=== PATIENT | female | born 1980 | race Caucasian/White ===

== ENCOUNTER 2023-02-26 13:11 | Emergency (ER) | payer OTHER, SELFPAY ==
[2023-02-26 13:17] VITALS: BP 182/88; PULSE 138; RESP 24; TEMP 36.6; O2SAT 98; BMI 32.8
--- NOTE | 2023-02-26 13:29 | CT_ITS ---
The [address] [address] Patient Name: JUNE PLASCENCIA MRN: [id number] date: 1980 Sex: F Assigned Patient Location: ED.MAIN Current Patient Location: ER Accession/Order Number: [id number] Exam Date: 02/26/2023 14:15 Report Date: 02/26/2023 14:43 At the request of: DANIELLE CARLIN Procedure: CT abdomen pelvis w con EXAM: CT abdomen pelvis w con HISTORY: Right sided abdominal pain COMPARISON: None. TECHNIQUE: Following intravenous administration of 98 mm of Omnipaque 350, axial soft tissue windows of the abdomen and pelvis were performed with coronal and sagittal reformats. CT dose reduction technique was used including Automated Exposure Control. Findings: ABDOMEN: The liver, gallbladder, spleen, pancreas, and adrenal glands are unremarkable. No renal stones. Minimal bilateral collecting system and ureteral dilatation to the level the bladder. No obstructing ureteral stone. Evaluation of the bowel is limited given the absence of oral contrast. No bowel obstruction. The appendix is nondilated. The aorta is normal caliber. No enlarged abdominal lymph nodes or free abdominal fluid. Pelvis: Unremarkable bladder. The uterus is present and unremarkable within the limits of CT. There is a partially rim-enhancing irregularly-shaped low-attenuation lesion within the right adnexa measuring approximately 3.0 cm and likely relating to an involuting ovarian cyst. Trace amount of free pelvic fluid. No enlarged pelvic lymph nodes. No aggressive sclerotic or lytic osseous lesions. CT/CT abdomen pelvis w con IMPRESSION: 1. Probable involuting right ovarian cyst with a trace amount of free fluid within the pelvis. Electronically authenticated by: SANDRA RODRIGUEZ Date: 02/26/2023 14:43
--- NOTE | 2023-02-26 13:30 | ED.GENADUL1 ---
HPI - General Adult General Chief complaint: Abdominal Pain Stated complaint: BACK PAIN Time Seen by Provider: 02/26/23 13:18 History of Present Illness HPI narrative: patient is a 42-year-old female who presents to the emergency department for the evaluation of ongoing right-sided abdominal pain radiating into the back. This has been ongoing for the last 3-4 weeks. She was initially seen at the [place] emergency Department and diagnosed with a muscle strain. She states she followed up with her PCP who disagreed with this diagnosis and ordered labs and ultrasound of the right upper quadrant. This showed fatty liver and no other acute abnormalities. Patient continues to have intermittent pain in the right upper quadrant with some radiation to the right flank. She reports nausea, vomiting, intermittent diarrhea and bloating. She states that she was recommended to have a HIDA scan years ago but due to her anxiety does not feel she can tolerate the test. She has had no previous abdominal surgeries. She is unsure of a possibility of . No medications taken prior to arrival. She denies fevers or urinary symptoms. Related Data Home Medications Medication Instructions Recorded Confirmed atorvastatin 40 mg tablet 40 mg PO DAILY 02/26/23 02/26/23 baclofen 10 mg tablet 10 mg PO DAILY 02/26/23 02/26/23 cholecalciferol (vitamin D3) 50 50 mcg PO DAILY 02/26/23 02/26/23 mcg (2,000 unit) capsule ferrous sulfate 325 mg (65 mg 325 mg PO QMWF 02/26/23 02/26/23 iron) tablet (FeroSul) lisinopril 10 mg tablet 10 mg PO DAILY 02/26/23 02/26/23 Previous Rx's Medication Instructions Recorded hydrocodone 5 mg-acetaminophen 325 1 tab PO Q6H PRN pain #12 tabs 02/26/23 mg tablet hyoscyamine sulfate 0.125 mg 0.125 mg PO Q6H PRN abdominal pain 02/26/23 tablet (Levsin) #12 tabs ketorolac 10 mg tablet 10 mg PO TID PRN pain #10 tabs 02/26/23 ondansetron 4 mg disintegrating 4 mg PO Q6H PRN nausea and 02/26/23 tablet vomiting #12 tabs Allergies Allergy/AdvReac Type Severity Reaction Status Date / Time dulaglutide [From [facility]] Allergy Severe Verified 02/26/23 13:15 Review of Systems ROS Constitutional Denies: fever or chills Ears, nose, mouth, and throat Denies: throat pain Cardiovascular Denies: chest pain Respiratory Denies: shortness of breath or cough Gastrointestinal Reports: abdominal pain, nausea, vomiting, diarrhea and constipation Genitourinary Denies: painful urination Musculoskeletal Reports: back pain; Denies: neck pain Integumentary/Breast Denies: rash Neurological Denies: headache Psychiatric Reports: anxiety PFSH PFS Social History Smoking status: Light tobacco smoker Exam Narrative Exam Narrative: Gen.: Awake, alert, in no distress Head: Normocephalic, atraumatic ENT: Moist mucous membranes Respiratory: No respiratory distress, lungs clear bilaterally Cardio: tachycardia Gastrointestinal: Abdomen is soft, nondistended and mildly tender in the right upper quadrant with no guarding or rebound Extremities: Moves extremities equally Psych: Normal mood and affect Neuro: No focal neuro deficit Skin: Warm, dry, intact Constitutional Vital Signs, click to edit/add: Last Vital Signs Temp 97.9 F 02/26/23 13:17 Pulse 106 H 02/26/23 14:35 Resp 20 02/26/23 14:35 BP 132/89 02/26/23 14:35 Pulse Ox 97 02/26/23 14:35 O2 Del Method Room Air 02/26/23 13:17 Course Vital Signs Vital signs: Vital Signs Temperature 97.9 F 02/26/23 13:17 Pulse Rate 138 H 02/26/23 13:17 Respiratory Rate 24 02/26/23 13:17 Blood Pressure 182/88 H 02/26/23 13:17 Pulse Oximetry 98 02/26/23 13:17 Oxygen Delivery Method Room Air 02/26/23 13:17 Temperature 97.9 F 02/26/23 13:17 Pulse Rate 106 H 02/26/23 14:35 Respiratory Rate 20 02/26/23 14:35 Blood Pressure 132/89 02/26/23 14:35 Pulse Oximetry 97 02/26/23 14:35 Oxygen Delivery Method Room Air 02/26/23 13:17 Medical Decision Making MDM Narrative Medical decision making narrative: records obtained from [facility] showing the patient was seen in the emergency department on 02/04/23 with negative lab studies, negative d-dimer, negative chest x-ray. She had outpatient labs on 02/13/23 as well as right upper quadrant ultrasound, these studies were also unremarkable. patient was treated with IV fluids, she was tachycardic on arrival to the Emergency Room but also notably anxious and her heart rate improved significantly after calming down and receiving IV fluids. She received pain medication, nausea medication. Lab studies are unremarkable including LFTs and bilirubin. Urine specimen with no evidence of infection and test is negative. CT of the abdomen and pelvis with IV contrast shows a patient has a right ovarian cyst, but otherwise unremarkable liver, gallbladder and pancreas. Her clinical picture is more consistent with gall bladder disease/biliary colic to the patient was strongly encouraged to follow up with her PCP for additional testing. She was given a general surgery referral. She'll be treated with pain medication for right ovarian cyst and abdominal pain as well as Levsin, Zofran. Return to the Emergency Room if symptoms change or worsen. Abdomen is soft and benign on recheck by attending physician at discharge. Vital signs have improved significantly at time of discharge. Medical Records Medical records reviewed: Yes I reviewed the patient's medical records Lab Data Lab results reviewed: Yes I reviewed the patient's lab results Labs: Lab Results 02/26/23 02/26/23 Range/Units 13:40 14:00 WBC 12.1 H (4.0-11.0) 10^3/uL RBC 4.99 (4.20-5.40) 10^6/uL Hgb 14.3 (12.0-16.0) g/dL Hct 43.0 (36.0-48.0) % MCV 86.2 (81.0-99.0) fL MCH 28.7 (26.7-34.0) pg MCHC 33.3 (29.9-35.2) g/dL RDW 13.2 (11.0-15.0) % Plt Count 347 (150-450) 10^3/uL MPV 9.9 (9.5-13.5) fL Neut % (Auto) 75.5 H (43.0-75.0) % Lymph % (Auto) 18.1 L (20.5-60.0) % [place] % (Auto) 4.8 (1.7-12.0) % Eos % (Auto) 1.0 (0.9-7.0) % Baso % (Auto) 0.4 (0.2-2.0) % Neut # (Auto) 9.1 H (1.4-6.5) 10^3/uL Lymph # (Auto) 2.2 (1.2-3.8) 10^3/uL [place] # (Auto) 0.6 (0.3-0.8) 10^3/uL Eos # (Auto) 0.1 (0.0-0.7) 10^3/uL Baso # (Auto) 0.1 (0.0-0.1) 10^3/uL Abs Immat Gran (auto) 0.02 (0.00-0.03) 10^3/uL Imm/Tot Granulo (auto) 0.2 (0.0-0.5) % Sodium 135 L (136-145) mmol/L Potassium 3.7 (3.5-5.1) mmol/L Chloride 99 (98-107) mmol/L Carbon Dioxide 25.0 (21.0-32.0) mmol/L Anion Gap 14.7 BUN 13.0 (7.0-18.0) mg/dL Creatinine 0.95 (0.55-1.02) mg/dL Est GFR ( Amer) >60 (>=60) Est GFR (Non-Af Amer) >60 (>=60) BUN/Creatinine Ratio 13.7 Glucose 191 H (74-106) mg/dL Lactate 1.6 (0.4-2.0) mmol/L Calcium 9.4 (8.5-10.1) mg/dL Total Bilirubin 0.4 (0.2-1.0) mg/dL AST 21 (15-37) U/L ALT 21 (14-59) U/L Alkaline Phosphatase 79 (46-116) U/L Total Protein 7.8 (6.4-8.2) g/dL Albumin 4.4 (3.4-5.0) g/dL Globulin 3.4 g/dL Albumin/Globulin Ratio 1.3 Lipase 31.0 (16.0-77.0) U/L Serum HCG, Qual Negative (NEGATIVE) Urine Color Lt. yellow (YELLOW) Urine Clarity Clear (CLEAR) Urine pH 6.5 (5.0-9.0) Ur Specific [place] <=1.005 A (1.005-1.025) Urine Protein Negative (NEG/TRACE) mg/dL Urine Glucose (UA) Negative (NEGATIVE) mg/dL Urine Ketones Trace A (NEGATIVE) mg/dL Urine Occult Blood Small A (NEGATIVE) Urine Nitrite Negative (NEGATIVE) Urine Bilirubin Negative (NEGATIVE) Urine Urobilinogen 0.2 (0.2-1.0) EU/dL Ur Leukocyte Esterase Negative (NEGATIVE) Urine RBC 0-2 (0-2) #/HPF Urine WBC None seen (NONE SEEN) #/HPF Ur Squamous Epith Cells Few A (NONE/RARE) #/LPF Urine Crystals None seen (None Seen) #/HPF Urine Bacteria Trace A (NONE SEEN) #/HPF Urine Casts None seen (NONE SEEN) #/LPF Urine Mucus None seen (NONE SEEN) Ur Culture Indicated? No Imaging Data CT scan - abdomen: Attestation: I have reviewed the pertinent imaging results. Radiologist's impression: Procedure: CT abdomen pelvis w con EXAM: CT abdomen pelvis w con HISTORY: Right sided abdominal pain COMPARISON: None. TECHNIQUE: Following intravenous administration of 98 mm of Omnipaque 350, axial soft tissue windows of the abdomen and pelvis were performed with coronal and sagittal reformats. CT dose reduction technique was used including Automated Exposure Control. Findings: ABDOMEN: The liver, gallbladder, spleen, pancreas, and adrenal glands are unremarkable. No renal stones. Minimal bilateral collecting system and ureteral dilatation to the level the bladder. No obstructing ureteral stone. Evaluation of the bowel is limited given the absence of oral contrast. No bowel obstruction. The appendix is nondilated. The aorta is normal caliber. No enlarged abdominal lymph nodes or free abdominal fluid. Pelvis: Unremarkable bladder. The uterus is present and unremarkable within the limits of CT. There is a partially rim-enhancing irregularly-shaped low-attenuation lesion within the right adnexa measuring approximately 3.0 cm and likely relating to an involuting ovarian cyst. Trace amount of free pelvic fluid. No enlarged pelvic lymph nodes. No aggressive sclerotic or lytic osseous lesions. IMPRESSION: 1. Probable involuting right ovarian cyst with a trace amount of free fluid within the pelvis. Electronically authenticated by: SANDRA RODRIGUEZ Date: 02/26/2023 14:43 Discharge Plan Discharge Chief Complaint: Abdominal Pain Clinical Impression: Nausea & vomiting, Abdominal pain, Cyst of right ovary Patient Disposition: Home, Self-Care Time of Disposition Decision: 15:00 Condition: Good Prescriptions / Home Meds: New hydrocodone-acetaminophen 5-325 mg tablet 1 tab PO Q6H PRN (Reason: pain) Qty: 12 0RF Rx Instructions: DX: R10.84 hyoscyamine sulfate [Levsin] 0.125 mg tablet 0.125 mg PO Q6H PRN (Reason: abdominal pain) Qty: 12 0RF ondansetron 4 mg tablet,disintegrating 4 mg PO Q6H PRN (Reason: nausea and vomiting) Qty: 12 0RF ketorolac 10 mg tablet 10 mg PO TID PRN (Reason: pain) Qty: 10 0RF No Action atorvastatin 40 mg tablet 40 mg PO DAILY baclofen 10 mg tablet 10 mg PO DAILY cholecalciferol (vitamin D3) 50 mcg (2,000 unit) capsule 50 mcg PO DAILY ferrous sulfate [FeroSul] 325 mg (65 mg iron) tablet 325 mg PO QMWF lisinopril 10 mg tablet 10 mg PO DAILY Instructions: Ovarian Cyst (ED), HIDA Scan (DC), Acute Nausea and Vomiting (ED), Abdominal Pain (ED) Stand Alone Forms: Portal Instructions Referrals: Jorge Gould MD [Physician] - 1 week (Consider seeing a general surgeon to discuss a HIDA scan) Physician,Non-Staff, [Physician] - 1 week
[2023-02-26] MEDS: 0.9 % SODIUM CHLORIDE 1,000 ML 999 ML IV (13:47)
[2023-02-26] MEDS: HYOSCYAMINE SULFATE 0.125 MG TAB.SUBL SL (13:47)
[2023-02-26] MEDS: HYDROMORPHONE HCL 1 MG/ML CARTRIDGE IVP (13:48)
[2023-02-26] MEDS: ONDANSETRON PF 4 MG/2 ML VIAL IV (13:48)
[2023-02-26 13:53] LABS: Basophils Absolute Auto 0.1 10^3/uL (0.0-0.1); Basophils Percent Auto 0.4 % (0.2-2.0); Eosinophils Absolute Auto 0.1 10^3/uL (0.0-0.7); Hemoglobin 14.3 g/dL (12.0-16.0); Immature Granulocytes Abs Auto 0.02 10^3/uL (0.00-0.03); Immature Granulocytes Pct Auto 0.2 % (0.0-0.5); Lymphocytes Absolute Auto 2.2 10^3/uL (1.2-3.8); Lymphocytes Percent Auto 18.1 % (20.5-60.0); Mean Corpuscular HGB Conc 33.3 g/dL (29.9-35.2); Mean Corpuscular Hemoglobin 28.7 pg (26.7-34.0); Mean Corpuscular Volume 86.2 fL (81.0-99.0); Mean Platelet Volume 9.9 fL (9.5-13.5); Monocytes Absolute Auto 0.6 10^3/uL (0.3-0.8); Monocytes Percent Auto 4.8 % (1.7-12.0); Neutrophils Absolute Auto 9.1 10^3/uL (1.4-6.5); Neutrophils Percent Auto 75.5 % (43.0-75.0); Platelet Count 347 10^3/uL (150-450); Red Blood Count 4.99 10^6/uL (4.20-5.40); Red Cell Distribution Width 13.2 % (11.0-15.0); White Blood Count 12.1 10^3/uL (4.0-11.0)
[2023-02-26 14:09] LABS: Lactate/Lactic Acid 1.6 mmol/L (0.4-2.0)
[2023-02-26 14:12] LABS: HCG Qualitative NEGATIVE (NEGATIVE)
[2023-02-26 14:15] LABS: Alanine Aminotransferase 21 U/L (14-59); Albumin Globulin Ratio 1.3; Albumin Level 4.4 g/dL (3.4-5.0); Alkaline Phosphatase 79 U/L (46-116); Anion Gap 14.7; Aspartate Amino Transferase 21 U/L (15-37); BUN Creatinine Ratio 13.7; Bilirubin Total 0.4 mg/dL (0.2-1.0); Calcium 9.4 mg/dL (8.5-10.1); Chloride 99 mmol/L (98-107); Estimated GFR (African America >60 (>=60); Estimated GFR (Non-African Ame >60 (>=60); Globulin 3.4 g/dL; Glucose 191 mg/dL (74-106); Potassium 3.7 mmol/L (3.5-5.1); Sodium 135 mmol/L (136-145); Total Protein 7.8 g/dL (6.4-8.2)
[2023-02-26 14:19] LABS: Bilirubin Urine NEGATIVE (NEGATIVE); Blood Urine SMALL (NEGATIVE); Clarity Urine CLEAR (CLEAR); Color Urine LT. YELLOW (YELLOW); Glucose Urine UA NEGATIVE (NEGATIVE); Ketones Urine TRACE mg/dL (NEGATIVE); Leukocyte Esterase Urine NEGATIVE (NEGATIVE); Nitrite Urine NEGATIVE (NEGATIVE); Protein Urine NEGATIVE (NEG/TRACE); Specific Gravity Urine <=1.005 (1.005-1.025); Urobilinogen Urine 0.2 EU/dL (0.2-1.0); pH Urine 6.5 (5.0-9.0)
[2023-02-26 14:22] LABS: Urine Microscopic Indicated YES
[2023-02-26 14:25] LABS: Bacteria Urine TRACE #/HPF (NONE SEEN); Crystals Seen? None Seen #/HPF (None Seen); Mucus Urine NONE SEEN (NONE SEEN); RBC Urine 0-2 #/HPF (0-2); Squamous Epithelial Cell Urine FEW #/LPF (NONE/RARE); WBC Urine NONE SEEN #/HPF (NONE SEEN)
[2023-02-26 14:26] LABS: Cast Seen? NONE SEEN #/LPF (NONE SEEN); Urine Culture Indicated NO
[2023-02-26 14:35] VITALS: BP 132/89; PULSE 106; RESP 20; O2SAT 97
== END 2023-02-26 15:22 | disposition home or self-care (01) ==
PROVIDERS: Physician Assistant; Emergency Provider Emergency Medicine
DX: R10.9 Unspecified abdominal pain (principal); R11.2 Nausea with vomiting, unspecified; N83.201 Unspecified ovarian cyst, right side; Z79.899 Other long term (current) drug therapy; F41.9 Anxiety disorder, unspecified; F17.210 Nicotine dependence, cigarettes, uncomplicated
CPT/HCPCS: 36415; 74177; 80053; 81001; 83605; 83690; 84703; 85025; 96374; 96375; 99285; J1170; Q9967

== ENCOUNTER 2023-05-02 01:31 | Emergency (ER) | payer OTHER, SELFPAY ==
[2023-05-02 01:37] VITALS: BP 140/90; PULSE 102; RESP 18; TEMP 36.5; O2SAT 99; BMI 33.7
[2023-05-02 01:41] VITALS: PULSE 101
--- NOTE | 2023-05-02 01:46 | ED_ITS ---
HPI - General Adult General Chief complaint: Anxiety Stated complaint: RAPID HEART RATE Time Seen by Provider: 05/02/23 01:41 Source: patient Mode of arrival: walk-in Limitations: no limitations History of Present Illness HPI narrative: Patient developed cough/cold symptoms 04/25/23. She took an over the counter cough/cold med that contained pseudophed tonight and developed palpitations. She has anxiety and takes scheduled buspar but has nthing for breakthrough episodes. She admits to anxiety tonight. Related Data Home Medications Medication Instructions Recorded Confirmed atorvastatin 40 mg tablet 40 mg PO DAILY 02/26/23 05/02/23 baclofen 10 mg tablet 10 mg PO DAILY PRN muscle spasm 02/26/23 05/02/23 cholecalciferol (vitamin D3) 50 50 mcg PO DAILY 02/26/23 05/02/23 mcg (2,000 unit) capsule ferrous sulfate 325 mg (65 mg 325 mg PO QMWF 02/26/23 05/02/23 iron) tablet (FeroSul) lisinopril 10 mg tablet 10 mg PO DAILY 02/26/23 05/02/23 buspirone 5 mg tablet 5 mg PO DAILY 05/02/23 05/02/23 magnesium gluconate 27 mg 27 mg PO DAILY 05/02/23 05/02/23 magnesium (500 mg) tablet (Mag-G) omeprazole magnesium 20 mg 40 mg PO DAILY 05/02/23 05/02/23 tablet,delayed release (Prilosec OTC) Allergies Allergy/AdvReac Type Severity Reaction Status Date / Time dulaglutide [From [facility]] Allergy Severe Verified 05/02/23 01:46 lisinopril Allergy Verified 05/02/23 01:46 PFSH PFS Social History Smoking status: Former smoker Exam Narrative Exam Narrative: Nurses notes and vital signs reviewed and patient is not hypoxic. afebrile General: Well-appearing and in no apparent distress but anxious. Skin: Warm, dry, no pallor noted. No rash. Eye: Pupils are equal, round and EOMI. No scleral icterus. Ears, Nose, Mouth, and Throat: Oral mucosa is moist Cardiovascular: Regular Rate and Rhythm without murmur, gallop or rub. Respiratory: No accessory muscle use or respiratory distress. Lungs are clear to auscultation, no wheezing, rales or rhonchi Musculoskeletal: normal ROM Neurological: A&O x4. No cranial nerve dysfunction observed. No truncal ataxia. Moves all extremities. Sensation intact. Psychiatric: Cooperative and interactive. Normal mood and affect. Constitutional Vital Signs, click to edit/add: Last Vital Signs Temp 97.7 F 05/02/23 01:37 Pulse 88 05/02/23 02:47 Resp 14 05/02/23 02:47 BP 140/97 H 05/02/23 02:47 Pulse Ox 98 05/02/23 02:47 O2 Del Method Room Air 05/02/23 02:47 Course Vital Signs Vital signs: Vital Signs Temperature 97.7 F 05/02/23 01:37 Pulse Rate 102 H 05/02/23 01:37 Respiratory Rate 18 05/02/23 01:37 Blood Pressure 140/90 05/02/23 01:37 Pulse Oximetry 99 05/02/23 01:37 Oxygen Delivery Method Room Air 05/02/23 01:37 Temperature 97.7 F 05/02/23 01:37 Pulse Rate 88 05/02/23 02:47 Respiratory Rate 14 05/02/23 02:47 Blood Pressure 140/97 H 05/02/23 02:47 Pulse Oximetry 98 05/02/23 02:47 Oxygen Delivery Method Room Air 05/02/23 02:47 Medical Decision Making MDM Narrative Medical decision making narrative: Patient was placed on groundwater monitoring technician and EKG obtained. Blood drawn and sent for evaluation. BP 140/90. HR 102. she was given oral Ativan. Covid was negative. WBC 12.1 - the same as 2 months ago. BMP normal. Patient informed of results and given reassurance. She felt better after ED treatment and HR decreased to 82bpm. Lab Data Labs: Lab Results 05/02/23 05/02/23 Range/Units 01:55 02:19 WBC 12.1 H (4.0-11.0) 10^3/uL RBC 4.63 (4.20-5.40) 10^6/uL Hgb 13.1 (12.0-16.0) g/dL Hct 40.3 (36.0-48.0) % MCV 87.0 (81.0-99.0) fL MCH 28.3 (26.7-34.0) pg MCHC 32.5 (29.9-35.2) g/dL RDW 13.9 (11.0-15.0) % Plt Count 341 (150-450) 10^3/uL MPV 9.8 (9.5-13.5) fL Neut % (Auto) 73.7 (43.0-75.0) % Lymph % (Auto) 17.6 L (20.5-60.0) % [place] % (Auto) 5.1 (1.7-12.0) % Eos % (Auto) 2.7 (0.9-7.0) % Baso % (Auto) 0.6 (0.2-2.0) % Neut # (Auto) 8.9 H (1.4-6.5) 10^3/uL Lymph # (Auto) 2.1 (1.2-3.8) 10^3/uL [place] # (Auto) 0.6 (0.3-0.8) 10^3/uL Eos # (Auto) 0.3 (0.0-0.7) 10^3/uL Baso # (Auto) 0.1 (0.0-0.1) 10^3/uL Abs Immat Gran (auto) 0.04 H (0.00-0.03) 10^3/uL Imm/Tot Granulo (auto) 0.3 (0.0-0.5) % Sodium 137 (136-145) mmol/L Potassium 4.0 (3.5-5.1) mmol/L Chloride 103 (98-107) mmol/L Carbon Dioxide 24.2 (21.0-32.0) mmol/L Anion Gap 13.8 BUN 8.0 (7.0-18.0) mg/dL Creatinine 0.83 (0.55-1.02) mg/dL Est GFR ( Amer) >60 (>=60) Est GFR (Non-Af Amer) >60 (>=60) BUN/Creatinine Ratio 9.6 Glucose 146 H (74-106) mg/dL Calcium 8.9 (8.5-10.1) mg/dL SARS-CoV-2 (PCR) Negative (NEGATIVE) ECG Data Attestation: I personally reviewed and interpreted this ECG as follows: Interpretation: EKG interpretation: Emergency Department physician interpretation. Sinus tachycardia at 101bpm. Normal axis, normal intervals and no ST segment elevation or depression. Discharge Plan Discharge Chief Complaint: Anxiety Clinical Impression: Palpitations, Acute anxiety Patient Disposition: Home, Self-Care Time of Disposition Decision: 03:03 Prescriptions / Home Meds: No Action atorvastatin 40 mg tablet 40 mg PO DAILY baclofen 10 mg tablet 10 mg PO DAILY PRN (Reason: muscle spasm) cholecalciferol (vitamin D3) 50 mcg (2,000 unit) capsule 50 mcg PO DAILY ferrous sulfate [FeroSul] 325 mg (65 mg iron) tablet 325 mg PO QMWF lisinopril 10 mg tablet 10 mg PO DAILY magnesium gluconate [Mag-G] 27 mg magnesium (500 mg) tablet 27 mg PO DAILY omeprazole magnesium [Prilosec OTC] 20 mg tablet,delayed release (DR/EC) 40 mg PO DAILY buspirone 5 mg tablet 5 mg PO DAILY Instructions: Heart Palpitations (ED), Anxiety (ED) Stand Alone Forms: Portal Instructions Referrals: BRANDYN BASS [Primary Care Provider] - 1 week
--- NOTE | 2023-05-02 01:46 | ECG_ITS ---
The [facility] Test Date: 2023-05-02 Pat Name: JUNE PLASCENCIA Department: Room: - Gender: Female [employer]: : 1980 Requested By: Bucky Small Order Number: [id number] Reading MD: CHRIS JACKSON Measurements Intervals [place] Rate: 101 P: 30 CA: 142 QRS: 82 QRSD: 80 T: 45 QT: 352 QTc: 410 Interpretive Statements 1120 Sinus tachycardia 9140 abnormal rhythm ECG No previous ECG available for comparison Electronically Signed On 05-02-2023 7:23:30 EST by CHRIS JACKSON
[2023-05-02 02:08] LABS: SARS-CoV-2 Ag NEGATIVE (NEGATIVE)
[2023-05-02] MEDS: ONDANSETRON 4 MG RAPDIS TABLET SL (02:09)
[2023-05-02] MEDS: LORAZEPAM 0.5 MG TABLET PO (02:09)
[2023-05-02 02:31] LABS: Basophils Absolute Auto 0.1 10^3/uL (0.0-0.1); Basophils Percent Auto 0.6 % (0.2-2.0); Eosinophils Absolute Auto 0.3 10^3/uL (0.0-0.7); Eosinophils Percent Auto 2.7 % (0.9-7.0); Hematocrit 40.3 % (36.0-48.0); Hemoglobin 13.1 g/dL (12.0-16.0); Immature Granulocytes Abs Auto 0.04 10^3/uL (0.00-0.03); Immature Granulocytes Pct Auto 0.3 % (0.0-0.5); Lymphocytes Absolute Auto 2.1 10^3/uL (1.2-3.8); Lymphocytes Percent Auto 17.6 % (20.5-60.0); Mean Corpuscular HGB Conc 32.5 g/dL (29.9-35.2); Mean Corpuscular Hemoglobin 28.3 pg (26.7-34.0); Mean Platelet Volume 9.8 fL (9.5-13.5); Monocytes Absolute Auto 0.6 10^3/uL (0.3-0.8); Monocytes Percent Auto 5.1 % (1.7-12.0); Neutrophils Absolute Auto 8.9 10^3/uL (1.4-6.5); Neutrophils Percent Auto 73.7 % (43.0-75.0); Platelet Count 341 10^3/uL (150-450); Red Blood Count 4.63 10^6/uL (4.20-5.40); Red Cell Distribution Width 13.9 % (11.0-15.0); White Blood Count 12.1 10^3/uL (4.0-11.0)
[2023-05-02 02:36] LABS: Anion Gap 13.8; BUN Creatinine Ratio 9.6; Calcium 8.9 mg/dL (8.5-10.1); Carbon Dioxide 24.2 mmol/L (21.0-32.0); Chloride 103 mmol/L (98-107); Estimated GFR (African America >60 (>=60); Estimated GFR (Non-African Ame >60 (>=60); Glucose 146 mg/dL (74-106); Sodium 137 mmol/L (136-145)
[2023-05-02 02:47] VITALS: BP 140/97; PULSE 88; RESP 14; O2SAT 98
[2023-05-02 11:23] LABS: SARS-CoV-2 NAA NOT DETECTED (NOT DETECTE)
== END 2023-05-02 03:20 | disposition home or self-care (01) ==
PROVIDERS: Emergency Provider Emergency Medicine
DX: R00.2 Palpitations (principal); F41.9 Anxiety disorder, unspecified; Z87.891 Personal history of nicotine dependence
CPT/HCPCS: 36415; 80048; 85025; 87635; 87811; 93005; 99284

== ENCOUNTER 2023-05-21 21:27 | Emergency (ER) | payer OTHER, SELFPAY ==
[2023-05-21 21:30] VITALS: BP 162/103; PULSE 111; RESP 20; TEMP 36.6; O2SAT 99; BMI 33.7
--- OUTSIDE RECORDS SUMMARY | 2023-05-21 21:37 | XMS_ITS | CCD ---
Author Name Unknown Address [address] [place] [address] Organization [facility] Care Team Providers Care Textile Conversion Manager Name Role Phone GREGOR TRUJILLO Referring Unavailable GARY, NADIA Primary Care Unavailable GREGOR TRUJILLO Referring Unavailable GARY, NADIA Primary Care Unavailable GREGOR TRUJILLO Admitting Unavailable CONSGREGOR HAM Attending Unavailable GARY, NADIA Primary Care Unavailable TIMMIS, DR CEBALLOS Consulting Unavailable [facility] Primary Care Unava ilable TIMABBEYS, DR CEBALLOS Attending Unavailable TIMMIS, DR CEBALLOS Admitting Unavailable Lilia Wilkinson Consulting Unavailable Clemente Berrios Unavailable Paige Diamond Primary Care Unavailable AplingKiki Admitting Unavailable AplingKiki Attending Unavailable AngDiamond anderson Attending Unavailable Anglim, Diamond Admitting Unavailable Anglim, Diamond Primary Care Unavailable Allergies Allergy Classification Reported Allergen(s) Allergy Type Date of Onset Reaction(s) Facility (1 source) dulaglutide Drug Allergy stomach upset [facility] Other Medications Current Medications Medication Drug Class(es) Dates Sig (Normalized) Sig (Original) atorvastatin 40 mg oral tablet (1 source) HMG-CoA Reductase Inhibitor take 1 tablet by mouth every twenty-four hours Atorvastatin Calcium 40 MG 1 tablet Orally Once a day Active Baclofen (1 source) gamma-Aminobutyric Acid-ergic Agonist Baclofen Active busPIRone hydrochloride 5 mg oral tablet (1 source) take 1 tablet by mouth every twelve hours busPIRone HCl 5 MG 1 tablet Orally Twice a day Active Calcium Magnesium Zinc (1 source) Calcium Magnesiu m Zinc Active cholecalciferol 0.05 mg oral capsule (1 source) Vitamin D take 1 capsule by mouth every twenty-four hours Vitamin D3 50 MCG (1999) 1 capsule Orally Once a day Active ferrous sulfate 325 mg oral tablet (1 source) take 1 tablet by mouth every other day FeroSul 325 (65 Fe) MG 1 tablet Orally every other day Active lisinopril 10 mg oral tablet (1 source) Angiotensin Converting Enzyme Inhibitor take 1 tablet by mouth every twenty-four hours Lisinopril 10 MG 1 tablet Orally Once a day Active loratadine 10 mg oral tablet (1 source) take 1 tablet by mouth once daily Loratadine 10 MG 1 tablet Orally Once a day Active Multivitamin preparation (1 source) take 1 tablet by mouth once daily Multivitamin - 1 tablet Orally Once a day Active omeprazole 40 mg delayed release oral capsule (1 source) Proton Pump Inhibitor take 1 capsule by mouth once daily Omeprazole 40 MG 1 capsule 30 minutes before morning meal Orally Once a day Active varenicline (1 source) Partial Cholinergic Nicotinic Agonist Varenicline Tartrate Active Problems Problem Classification Problem Date Documented Date Episodic/Chronic Administrative/socia l admission (2 sources) Dietary counseling and surveillance; Translations: [Other specified counseling] Episodic Diabetes mellitus without complication (2 sources) Type 2 diabetes mellitus; Translations: [Type 2 diabetes mellitus without complications] Chronic Disorders of lipid metabolism (2 sources) Dyslipidemia; Translations: [Hyperlipidemia, unspecified] Chronic Esophageal disorders (2 sources) Gastroesophageal reflux disease; Translations: [Gastro-esophageal reflux disease without esophagitis] Chronic Essential hypertension (2 sources) Essential hypertension; Translations: [Essential (primary) hypertension] Chronic Other ear and sense organ disorders (4 sources) Sensorineural hearing loss, unilateral, left ear, with unrestricted hearing on the contralateral side; Translations: [SHL UNI LT UNRESTRCT HEAR CONTRALAT] Onset: 01-16-2021 Chronic Other nutritional; endocrine; and metabolic disorders (1 source) Obesity; Translations: [Obesity, unspecified] Chronic Other nutritional; endocrine; and metabolic disorders (1 source) Obesity, unspecified Chronic Unclassified (2 sources) RIGHT ACHILLES SPUR; Translations: [RIGHT ACHILLES SPUR] Onset: 09-04-2018 Unclassified (1 source) Dietary counseling and surveillance; Translations: [Dietary counseling and surveillance] Onset: 01-20-2023 Unclassified (1 source) Unspecified internal derangement of left knee; Translations: [Unspecified internal derangement of left knee] Onset: 10-14-2022 Results Test Name Value Interpretation Reference Range Facil ity XR pre/post mri xrayon 10-14 XR pre/post mri xray [facility] Main [place] [address] [place] [address] MRI Report Signed Patient: Liz Gonzalez MR#: [id number] : 1980 Acct:[id number] Age/Sex: 42 / F ADM Date: 10/14/22 Loc: MR Room: Type: [facility] Attending Dr: Kiki Garay NP Copies to: Kiki Garay NP Ordering Provider: Kiki Garay NP Date of Service: 10/14/22 MR/MR knee LT wo con: M23.92 ([id number]) XR/XR pre/post mri xray: M2 MRI of the RIGHT Knee without contrast TECHNIQUE: Multiplanar T1 and T2-weighted imaging of the knee obtained without contrast HISTORY: Known Morales's cyst of left knee. BONE MARROW: No infiltrative changes. BONE MARROW EDEMA: None FRACTURE: None BONE TUMOR: None BONY ALIGNMENT: Adequate DEGENERATION: No significant spurring or joint space narrowing. JOINT EFFUSION: No joint effusion MUSCLES: Unremarkable SOFT TISSUES: Unremarkable POPLITEAL CYST: Large popliteal cyst measures up to 5.3 cm. No rupture. ANTERIOR CRUCIATE LIGAMENT: Intact POSTERIOR CRUCIATE LIGAMENT: Intact LATERAL COMPARTMENT: LATERAL MENISCUS: Subtle increased intrasubstance signal intensity posterior horn of the medial meniscus suggesting intrasubstance tear versus mucoid degeneration.. LATERAL ARTICULAR CARTILAGE: Intact. No osteochondral defect. No subcuticular bone marrow edema. PROXIMAL TIBIOFIBULAR JOINT: Intact POSTERIOR LATERAL COMPARTMENT: Intact lateral collateral ligament complex. Intact biceps femoris tendon. Intact popliteus tendon. COMMON PERONEAL NERVE: Intact MEDIAL COMPARTMENT: MEDIAL MENISCUS: Increased CAD T1/T2 signal changes of the posterior horn of the medial meniscus suggesting intrasubstance tear versus mucoid degeneration. MEDIAL ARTICULAR SURFACE: No chondromalacia. No subarticular bone marrow edema. POSTERIOR MEDIAL COMPARTMENT: Medial collateral ligament complex intact. The semimembranosus tendon intact. No ramp lesion of the posterior horn of medial meniscus present. PATELLOFEMORAL COMPARTMENT: PATELLOFEMORAL ARTICULAR CARTILAGE: Chondromalacia of the patella identified. ANTERIOR LIGAMENTS: Patellar ligament and quadriceps tendon are intact. MR/MR knee LT wo con IMPRESSION: Findings suggesting mucoid degeneration/intrasub stance tear of posterior horn of the medial meniscus and posterior horn of lateral meniscus. Intact ACL. No joint effusion. Patellofemoral chondromalacia Popliteal cyst. 2 views of left knee. No joint effusion. Intact Bony structures. Adequate bony alignment. No significant degeneration. IMPRESSION: Unremarkable exam Impression dictated by: Mick Colindres M.D.10/14/2022 3:08 PM Dictation Location: [place] [address] Transcribed By: [facility] 10/14/22 1508 Dictated By: Mick Colindres DO 10/14/22 1502 Signed By: 10/14/22 1508 Normal [facility] MRI BRAIN WO CONon 1 MRI BRAIN WO CON EXAM: MRI BRAIN WO CON HISTORY: Sensorineural hearing loss COMPARISON: None. TECHNIQUE: Limited exam due to patient claustrophobia and inability to complete the procedure. Images obtained included axial diffusion and sagittal T1 images only. FINDINGS: There is no infarct, hemorrhage, mass, mass effect or midline shift evident. The ventricles are normal size. Small cyst left maxillary sinus floor, otherwise no significant sinus opacification is seen. The orbits appear grossly unremarkable. Internal auditory canals are not adequately evaluated. IMPRESSION: No acute intracranial process is evident. Internal auditory canals not evaluated due to patient claustrophobia and inability to complete exam. Electronically authenticated by: LILIA WILKINSON Date: 2021-01-16 19:04 Normal [facility] OPERATIVE REPORTon 9 OPERATIVE REPORT [address] [address] OPERATIVE REPORT PATIENT NAME: LIZ GONZALEZ : 1980 MED REC NO: [id number] ROOM: ACCOUNT NO: [id number] ADMIT DATE: 09/04/2018 PROVIDER: Gregor Trujillo DATE OF PROCEDURE: 09/04/2018 SURGEON: Dr. Gregor Trujillo. DIPPER MACHINE OPERATOR: . PREOPERATIVE DIAGNOSES: 1. Right foot chronic Achilles tendonosis. 2. Right foot retrocalcaneal spur. POSTOPERATIVE DIAGNOSES: 1. Right foot chronic Achilles tendonosis. 2. Right foot retrocalcaneal spur. PROCEDURE PERFORMED: Right foot resection of retrocalcaneal spur with debridement and repair of the Achilles tendon. ANESTHESIA: Popliteal block, right. ANESTHESIOLOGIST: Ana. HEMOSTASIS: Thigh tourniquet, 300 mmHg. OBJECTIVE: The patient was prophylaxed with 2 gm of Ancef preoperatively. The patient was taken to the operating room and placed in the prone position. Popliteal block had been placed prior to this. The right foot, ankle, and leg were prepped sterilely with Betadine. Attention now directed to right foot posterior aspect where a 5 cm linear incision was made proximal Achilles moving distally over the calcaneus. Incision was deepened through the subcutaneous tissues. Care was taken to cut, clamp, and Bovie all the incisional blood vessels. Dissection was carried around the tendon and noted very prominent spur formation at the posterior attachments of the Achilles. The tendon splitting incision was then made in the midsubstance of the Achilles. Lateral medial segments were reflected away from the bone. Noted quite prominent spur formation along with some involvement of the Achilles with areas of bone spur formation. Using a combination of osteotomes and egg burs, the spur was resected. Debridement of the Achilles also performed. The area was then copiously lavaged with gentamicin flush. The tendon was then reapproximated with Arthrex suture anchor. Remainder of the tendon was then repaired with 0 Vicryl. The subcu was closed with 2-0 Vicryl. The skin then closed with a combination of 3-0 and 4-0 Nylon in a horizontal mattress fashion. Ly compressive dressing splint, splint was then applied. The patient tolerated the anesthesia and procedure well without complications and was transported to recovery room with vital signs stable, afebrile, and in apparent satisfactory condition. Sponge, needle, and instrument counts were all correct. GREGOR TRUJILLO NANI/[id number] Doc#: [id number] CC: Normal [facility] HCG, ,Urineon 09-04 HCG.beta subunit ( test) Ql (U) Negative Normal NEG [facility] Comment on above: Result Comment: Spec imens with hCG levels near the threshold of the test (25 mIU/mL) may give a negative or indeterminate result. In such cases, another test should be performed with a new specimen in 48-72 hours. If early is suspected clinically in this setting, correlation with quantitative serum b-hCG level is suggested. [facility] has confirmed the use of plasma for this test. This has not been cleared or approved by the U.S. Food and Drug Administration. The FDA has determined that such clearance is not necessary. Performed By: #### U HCG #### [facility] [address] [place] [address] [employer]: Yan Cho MD Basic Metabolic Profon 08-26 (cont.) Normal [facility] Comment on above: Result Comment: Aver age GFR for 30-39 years old: 107 mL/min/1.73sq m Chronic Kidney Disease: <60 mL/min/1.73sq m Kidney failure: <15 mL/min/1.73sq m eGFR calculated using average adult body mass. Additional eGFR calculator available at: http://www.[employer]/multiple_crcl_2012.htm Performed By: #### B MP, CBC #### [facility] [address] [place] [address] [employer]: Yan Cho MD Anion gap molar conc 12 mmol/L Normal 9-17 [facility] Comment on above: Performed By: #### B MP, CBC #### [facility] [address] [place] [address] [employer]: Yan Cho MD BUN/CRE Ratio 13 Normal 9-20 [facility] Comment on above: Performed By: #### B MP, CBC #### [facility] [address] [place] [address] [employer]: Yan Cho MD Calcium mass conc 10.2 mg/dL Normal 8.6-10.4 [facility] Comment on above: Performed By: #### B MP, CBC #### [facility] [address] [place] [address] [employer]: Yan Cho MD Chloride molar conc 100 mmol/L Normal 98-107 [facility] Comment on above: Performed By: #### B MP, CBC #### [facility] [address] [place], [place] [id number] [employer]: Yan Cho MD CO2 molar conc 26 mmol/L Normal 20-31 [facility] Comment on above: Performed By: #### B MP, CBC #### [facility] [address] [place], [place] [id number] [employer]: Yan Cho MD Creatinine mass conc 0.89 mg/dL Normal 0.50-0.90 [facility] Comment on above: Performed By: #### B MP, CBC #### [facility] [address] [place], [place] [id number] [employer]: Yan Cho MD GFR, Amer >60 Normal >60 [facility] Comment on above: Performed By: #### B MP, CBC #### [facility] [address] [place], [place] [id number] [employer]: Yan Cho MD GFR,non Amer >60 Normal >60 [facility] Comment on above: Performed By: #### B MP, CBC #### [facility] [address] [place], [place] [id number] [employer]: Yan Cho MD Glucose mass conc 137 mg/dL High 70-99 [facility] Comment on above: Performed By: #### B MP, CBC #### [facility] [address] [place], [place] [id number] [employer]: Yan Cho MD Potassium molar conc 4.9 mmol/L Normal 3.7-5.3 [facility] Comment on above: Performed By: #### B MP, CBC #### [facility] [address] [place], [place] [id number] [employer]: Yan Cho MD Sodium molar conc 138 mmol/L Normal 135-144 [facility] Comment on above: Performed By: #### B MP, CBC #### [facility] [address] [place] [address] [employer]: Yan Cho MD Staging: Normal [facility] Comment on above: Result Comment: Stag e 1: Some kidney damage normal GFR Stage 2: Mild kidney damage GFR 60-89 Stage 3: Moderate kidney damage GFR 30-59 Stage 4: Severe kidney damage GFR 15-29 Stage 5: Severe kidney damage GFR <15 ESRD - chronic treatment by dialysis or transplant Performed By: #### B MP, CBC #### [facility] [address] [place], [place] [id number] [employer]: Yan Cho MD Urea nitrogen mass conc 12 mg/dL Normal 6-20 [facility] Comment on above: Performed By: #### B MP, CBC #### [address] [place] [address] [employer]: Yan Cho MD CBCon 08-26-2018 Erythrocyte distribution width Ratio (RBC) 13.3 % Normal 11.8-14.4 [facility] Comment on above: Performed By: #### B MP, CBC #### [address] [place], [place] [id number] [employer]: Yan Cho MD Hematocrit Volume Fraction (Bld) 46.3 % Normal 36.3-47.1 [facility] Comment on above: Performed By: #### B MP, CBC #### [facility] [address] [place] [address] [place], [place] [id number] [employer]: Yan Cho MD Hemoglobin mass conc (Bld) 14.5 g/dL Normal 11.9-15.1 [facility] Comment on above: Performed By: #### B MP, CBC #### [address] [place] [address] [employer]: Yan Cho MD MCH Entitic mass (RBC) 28.3 pg Normal 25.2-33.5 [facility] Comment on above: Performed By: #### B MP, CBC #### [facility] [address] [place], [place] [id number] [employer]: Yan Cho MD [facility] mass conc (RBC) 31.3 g/dL Normal 28.4-34.8 [facility] Comment on above: Performed By: #### B MP, CBC #### [facility] [address] [place], [place] [id number] [employer]: Yan Cho MD MCV Entitic volume (RBC) 90.3 fL Normal 82.6-102.9 [facility] Comment on above: Performed By: #### B MP, CBC #### [facility] [address] [place], [place] [id number] [employer]: Yan Cho MD NRBC Automated 0.0 per 100 WBC Normal 0.0 [facility] Comment on above: Performed By: #### B MP, CBC #### [facility] [address] [place], [place] [id number] [employer]: Yan Cho MD Platelet mean volume Entitic volume (Bld) 10.4 fL Normal 8.1-13.5 [facility] Comment on above: Performed By: #### B MP, CBC #### [address] [place], [place] [id number] [employer]: Yan Cho MD Platelets #/vol (Bld) 325 10*3/uL Normal 138-453 [facility] Comment on above: Performed By: #### B MP, CBC #### [facility] [address] [place], [place] [id number] [employer]: Yan Cho MD RBC #/vol (Bld) 5.13 10*6/uL High 3.95-5.11 [facility] Comment on above: Performed By: #### B MP, CBC #### [address] [place], [place] [id number] [employer]: Yan Cho MD WBC #/vol (Bld) 12.6 10*3/uL High 3.5-11.3 [facility] Comment on above: Performed By: #### Alexis BARTLETT, CBC #### [facility] [address] [place] [address] [place], [place] [id number] [employer]: Yan Cho MD Basic Metabolic Profon 04-30 (cont.) Normal [facility] Comment on above: Result Comment: Aver age GFR for 30-39 years old: 107 mL/min/1.73sq m Chronic Kidney Disease: <60 mL/min/1.73sq m Kidney failure: <15 mL/min/1.73sq m eGFR calculated using average adult body mass. Additional eGFR calculator available at: http://www.[employer]/multiple_crcl_2012.htm Performed By: #### B DHRUV, CBC #### [address] [place] [address] Anion gap molar conc 12 mmol/L Normal 9-17 [facility] Comment on above: Performed By: #### Alexis BARTLETT, CBC #### [address] [place] [address] BUN/CRE Ratio 9 Normal 9-20 [facility] Comment on above: Performed By: #### B DHRUV, CBC #### [address] [place] [address] Calcium mass conc 9.6 mg/dL Normal 8.6-10.4 [facility] Comment on above: Performed By: #### B DHRUV, CBC #### [address] [place] [address] Chloride molar conc 101 mmol/L Normal 98-107 [facility] Comment on above: Performed By: #### B DHRUV, CBC #### [address] [place] [address] CO2 molar conc 24 mmol/L Normal 20-31 [facility] Comment on above: Performed By: #### B MP, CBC #### [address] [address] Creatinine mass conc 0.77 mg/dL Normal 0.50-0.90 [facility] Comment on above: Performed By: #### B MP, CBC #### [address] [place] [address] GFR, Amer >60 Normal >60 [facility] Comment on above: Performed By: #### B MP, CBC #### [address] [place] [address] GFR,non Amer >60 Normal >60 [facility] Comment on above: Performed By: #### B MP, CBC #### [address] [place] [address] Glucose mass conc 92 mg/dL Normal 70-99 [facility] Comment on above: Performed By: #### B MP, CBC #### [address] [place] [address] Potassium molar conc 4.2 mmol/L Normal 3.7-5.3 [facility] Comment on above: Performed By: #### B MP, CBC #### [address] [place] [address] Sodium molar conc 137 mmol/L Normal 135-144 [facility] Comment on above: Performed By: #### B MP, CBC #### [address] [place] [address] Staging: Normal [facility] Comment on above: Result Comment: Stag e 1: Some kidney damage normal GFR Stage 2: Mild kidney damage GFR 60-89 Stage 3: Moderate kidney damage GFR 30-59 Stage 4: Severe kidney damage GFR 15-29 Stage 5: Severe kidney damage GFR <15 ESRD - chronic treatment by dialysis or transplant Performed By: #### B MP, CBC #### [address] [place] [address] Urea nitrogen mass conc 7 mg/dL Normal 6-20 [facility] Comment on above: Performed By: #### B MP, CBC #### [address] [place] [address] CBCon 04-30-2018 Erythrocyte distribution width Ratio (RBC) 13.6 % Normal 11.8-14.4 [facility] Comment on above: Performed By: #### B MP, CBC #### [address] [place] [address] Hematocrit Volume Fraction (Bld) 46.0 % Normal 36.3-47.1 [facility] Comment on above: Performed By: #### B MP, CBC #### [address] [place] [address] Hemoglobin mass conc (Bld) 15.0 g/dL Normal 11.9-15.1 [facility] Comment on above: Performed By: #### B MP, CBC #### [address] [place] [address] MCH Entitic mass (RBC) 29.5 pg Normal 25.2-33.5 [facility] Comment on above: Performed By: #### B MP, CBC #### [address] [place] [address] MCHC mass conc (RBC) 32.6 g/dL Normal 28.4-34.8 [facility] Comment on above: Performed By: #### B MP, CBC #### [address] [address] MCV Entitic volume (RBC) 90.4 fL Normal 82.6-102.9 [facility] Comment on above: Performed By: #### B MP, CBC #### [address] [place] [address] NRBC Automated 0.0 per 100 WBC Normal 0.0 [facility] Comment on above: Performed By: #### B MP, CBC #### [address] [place] [address] Platelet mean volume Entitic volume (Bld) 10.6 fL Normal 8.1-13.5 [facility] Comment on above: Performed By: #### B MP, CBC #### [address] [place] [address] Platelets #/vol (Bld) 389 10*3/uL Normal 138-453 [facility] Comment on above: Performed By: #### B MP, CBC #### [address] [place] [address] RBC #/vol (Bld) 5.09 10*6/uL Normal 3.95-5.11 [facility] Comment on above: Performed By: #### B MP, CBC #### [address] [place] [address] WBC #/vol (Bld) 16.7 10*3/uL High 3.5-11.3 [facility] Comment on above: Performed By: #### B MP, CBC #### [address] [place] [address] Vital Signs Date Time Vital Sign Value Performing Clinician Facility 01-20-2023 08:45-0400 Body height 161.29 cm [email or web address] [email or web address] Other [facility] Other 01-20-2023 08:45-0400 Body mass index (BMI) [Ratio] 33.28 kg/m2 [employer] Other [facility] Other 01-20-2023 08:45-0400 Body weight 86.59 kg [employer] Other [facility] Other 01-20-2023 08:45-0400 Diastolic blood pressure 92 mm[Hg] Clemente Berrios Other [facility] Other 01-20-2023 08:45-0400 Respiratory rate 18 /min Clemente Berrios Other [facility] Other 01-20-2023 08:45-0400 SaO2% (BldA) [Mass fraction] 99 % Clemente Berrios Other [facility] Other 01-20-2023 08:45-0400 Systolic blood pressure 142 mm[Hg] Clemente Berrios Other [facility] Other Encounters Encounter Date Encounter Type Care Provider Facility Start: 01-20-2023 End: 01-20-2023 ambulatory Diamond [facility] Other Start: 01-20-2023 Nutrition therapy Clemente Berrios [facility] Start: 10-14-2022 End: 10-14-2022 ambulatory Diamond Gibson Facility:[facility] Start: 01-16-2021 End: 01-17-[address] TUCKER PERDUE Facility: Start: 09-04-2018 End: 09-04-2018 Patient encounter procedure GREGOR Gabriella [facility] Start: 08-26-2018 End: 08-31-2018 [facility]: 04-30-2018 End: 05-05-2018 Patient encounter procedure [facility] Procedures Date Procedure Procedure Detail Performing Clinician Start: 09-04-2018 DISCHARGE PATIENT GREGOR TRUJILLO Start: 09-04-2018 BEDREST GREGOR BRADY Start: 09-04-2018 Continuous pulse oximetry GREGOR TRUJILLO Start: 09-04-2018 ENCOURAGE DEEP BREAT DARVIN AND COUGHING GREGOR TRUJILLO Start: 09-04-2018 INITIATE OXYGEN THER APY PROTOCOL GREGOR TRUJILLO Start: 09-04-2018 NOTIFY PHYSICIAN (SPECIFY) GREGOR TRUJILLO Start: 09-04-2018 NURSING COMMUNICATION J REMIGIOL CUBA Start: 09-04-2018 VITAL SIGNS GREGOR BRADY Start: 09-04-2018 Glucose quantitative blood xcpt reagent strip GREGOR TRUJILLO Start: 09-04-2018 Urine test visual color cmprsn meths GREGOR TRUJILLO Start: 09-04-2018 INSERT PERIPHERAL IV MATT TRUJILLO Start: 08-26-2018 Ecg routine ecg w/le ast 12 lds w/i&r GREGOR TRUJILLO Start: 08-26-2018 EKG REPORT GREGOR BRADY Start: 08-26-2018 Basic metabolic pane l calcium total GREGOR TRUJILLO Start: 08-26-2018 Blood count complete automated GREGOR TRUJILLO Start: 04-30-2018 Basic metabolic pane l calcium total GREGOR TRUJILLO Start: 04-30-2018 Blood count complete automated GREGOR TRUJILLO Payers Date Payer Category Payer Self-pay 1980 Unknown [id number] 1980 Unknown [id number] 1980 Unknown [id number] [id number] 1980 Unknown [id number] [id number] [id number] 1957 Medicaid [id number] Unknown [id number] 2.16.8 [id number] Unknown [id number] 2.16.8 [id number] Social History Date Type Detail Facility Unknown if ever smoked [facility] Other Sex Assigned At Sex Assigned At Bir [facility] Other Evaluation note 01-20-2023 Note Date & Type Note Facility 01-20-2023 Evaluation note Encounter Date Diagnosis Assessment Notes Dec, Obesity, Class I, BMI 30-34.9 (ICD-10 - E66.9) Consultation date 01-20-2023, weight (pounds): 190.9Plan is to take a weight centric approach to patient care in the treatment of excess adiposity and patient's weight related comorbidities.-Dis cussed the impact of excess adiposity on overall health and increased risk of associated health conditions-Discuss ed treatment options including lifestyle interventions, such as calorie reduction and physical activity, and use of medications as an adjunct to amplify adherence to healthy behavior change-Discussed benefits, risks and side effects of medication. After informed discussion, plan is to proceed with lifestyle interventionOrders :-Increase muscle mass by increasing protein intake and optimizing resistance exercise. Reduce carbohydrates, especially in the evening time-Highest A1c patient can recall is 8.9%. A1c October 2022, 6.4%-Follow up in clinic in 6 weeksThis note was created with voice recognition software. Please excuse errors in technical support analyst. Dec, Dietary surveillance and counseling (ICD-10 - Z71.3) Discussed in detail high-protein, high-fiber, low-fat nutrition plan favoring calorie deficit and lean tissue mass preservation.-Lean protein sources at each meal supplemented with nutrient rich, low calorie density carbohydrates-Focu s on consuming calories earlier in the day versus later; breakfast and lunch should be largest meals-Evening meal should be high in protein and low in carbohydrate to maximize lipolysis overnight-Aim for a minimum of 30 g of protein per meal with breakfast, lunch and dinner with total daily intake reaching at least 100 g-If needed, supplement with whey protein powder or premade protein drink low in carbohydrate and low in fat-If hungry between meals, consider protein snack low in carbohydrate and low in fat Actionable goals: Increase protein to 30 g minimum 4 times daily, reduce carbohydrate in the evening time, perform small bouts of resistance exercise prior to each protein rich meal, check blood sugar after consuming fruit to monitor response Dec, Exercise counseling (ICD-10 - Z71.89) Absolute HGS at time of consultation (pounds): 75Discussed in detail exercise interventions to promote lean tissue mass preservation during calorie restriction.-In addition to regularly scheduled endurance and resistance exercise, perform bouts of resistance exercise prior to meals using body weight, resistance bands or dumbbells/weights- Following meals, consider aerobic exercise, such as brisk walking, to improve blood sugars and to mitigate hyperinsulinemia Dec, Type 2 diabetes mellitus (ICD-10 - E11.9) Diagnosed 2015 Highest A1c patient can recall is 8.9% Was on Jardiance in the past and experienced yeast infection, was on Trulicity but experienced emesis Patient did not tolerate metformin Continue with lifestyle and monitor A1c. Explained insulin resistance and carbohydrate tolerance Dec, Dyslipidemia (ICD-10 - E78.5) Dec, Essential hypertension (ICD-10 - I10) Dec, GERD (gastroesophage al reflux disease) (ICD-10 - K21.9) [facility] Other History general Narrative - Reported Note Date & Type Note Facility History general Narrative - Reported Type Medical History type II diabetes Medical History high cholesterol Medical History high blood pressure Medical History iron deficiency anemia Medical History vitamin D deficiency Medical History reflux Medical History muscle spasm Medical History anxiety Surgical History achilles tendon repair, Right Hospitalization History none [facility] Other Summary Purpose Family History No Family History Records FoundNo Family History Records FoundNo Family History Records Found Advance Directives No Advanced Directives Records FoundNo Advanced Directives Records FoundNo Advanced Directives Records Found Additional Source Comments INFORMATION SOURCE (unrecogn ized section and content) DATE CREATED AUTHOR 09/12/2018 [facility] DATE CREATED AUTHOR AUTHOR'S ORGANIZ ATION 01/25/2021 [facility] DATE CREATED AUTHOR AUTHOR'S ORGANIZ ATION 05/05/2023 [facility] REASON FOR VISIT (unrecogniz ed section and content) Initial wMN FOR RECORDS PERTAINING TO PATIENTS WHO ARE OR HAVE BEEN ENROLLED IN A CHEMICAL DEPENDENCY/SUBSTANCEABUSE PROGRAM, SOME INFORMATION MAY BE OMITTED. This clinical summary was aggregated from multiple sources. Caution should be exercised in using it in the provision of clinical care. This summary normalizes information from multiple sources, and as a consequence, information in this document may materially change the coding, format and clinical context of patient data. In addition, data may be omitted in some cases. CLINICAL DECISIONS SHOULD BE BASED ON THE PRIMARY CLINICAL RECORDS. [facility]. provides no warranty or guarantee of the accuracy or completeness of information in this document.
--- NOTE | 2023-05-21 22:31 | ED_ITS ---
HPI - Abdominal Pain General Chief Complaint: Abdominal Pain Stated Complaint: VOMITING Time Seen by Provider: 05/21/23 21:41 Source: patient Mode of arrival: walk-in Limitations: no limitations History of Present Illness HPI narrative: This 43-year-old female presents for evaluation of acute onset of right lower quadrant abdominal pain with approximately 8 episodes of vomiting since dinnertime. She states she was feeling fine earlier in the day and had a normal appetite. She started having right lower quadrant abdominal pain after dinner and has vomited 8 times since. She has not had any diarrhea. She denies any fever. She denies any chest pain or shortness of breath. She does have a history of ovarian cysts. She denies the possibility of because she finished her menstrual period 2 days ago. She states the pain somewhat radiates into her back. She does not have a history of kidney stones. She denies any urinary symptoms. Related Data Home Medications Medication Instructions Recorded Confirmed cholecalciferol (vitamin D3) 50 50 mcg PO DAILY 02/26/23 05/21/23 mcg (2,000 unit) capsule ferrous sulfate 325 mg (65 mg 325 mg PO QMWF 02/26/23 05/21/23 iron) tablet (FeroSul) buspirone 5 mg tablet 5 mg PO DAILY 05/02/23 05/21/23 magnesium gluconate 27 mg 27 mg PO DAILY 05/02/23 05/21/23 magnesium (500 mg) tablet (Mag-G) omeprazole magnesium 20 mg 40 mg PO DAILY 05/02/23 05/21/23 tablet,delayed release (Prilosec OTC) alprazolam 0.25 mg tablet 0.25 mg PO DAILY 05/21/23 05/21/23 amlodipine 2.5 mg tablet 2.5 mg PO DAILY 05/21/23 05/21/23 blood sugar diagnostic (True 05/21/23 05/21/23 Metrix Glucose Test Strip) Allergies Allergy/AdvReac Type Severity Reaction Status Date / Time dulaglutide [From [facility]] Allergy Severe Verified 05/02/23 01:46 lisinopril Allergy Verified 05/02/23 01:46 Review of Systems ROS Status of ROS 10 or more systems reviewed and unremark able except as noted in history and below PFSH PFSH Social History Smoking status: Former smoker Exam Narrative Exam Narrative: Nurses note and vital signs reviewed and patient is not hypoxic.Her blood pre ssure is elevated and she is tachycardic with a pulse of 111 triage General: The patient appears well and in no apparent distress. Patient is resting comfortably on cart, No respiratory distress, no active vomiting Skin: Warm, dry, no pallor noted. There is no rash noted. Head: Normocephalic, atraumatic Eye: Normal conjunctiva, no drainage, EOMI. PERRL Ears, Nose, Mouth, and Throat: oral mucosa is dry Cardiovascular: Regular Rate and RhythmS1-S2, no murmurs rubs or gallops appreciated Respiratory: Patient is in no distress, no accessory muscle use, lungs are clear to auscultation, no wheezing, rales or rhonchi Back: non-tender, no CVA tenderness bilaterally to percussion. GI: Normal bowel sounds, Mild right lower quadrant tenderness to deep palpation, negative Rovsing sign, negative psoas sign Musculoskeletal: The patient has no evidence of calf tenderness, no pitting edema, symmetrical pulses noted bilaterally Neurological: A&O x4, normal speech Psychiatric: Cooperative Constitutional Vital Signs, click to edit/add: Last Vital Signs Temp 97.8 F 05/21/23 21:30 Pulse 93 H 05/21/23 23:31 Resp 18 05/21/23 23:31 BP 123/93 H 05/21/23 23:31 Pulse Ox 97 05/21/23 23:31 O2 Del Method Room Air 05/21/23 21:30 Course Vital Signs Vital signs: Vital Signs Temperature 97.8 F 05/21/23 21:30 Pulse Rate 111 H 05/21/23 21:30 Respiratory Rate 20 05/21/23 21:30 Blood Pressure 162/103 H 05/21/23 21:30 Pulse Oximetry 99 05/21/23 21:30 Oxygen Delivery Method Room Air 05/21/23 21:30 Temperature 97.8 F 05/21/23 21:30 Pulse Rate 93 H 05/21/23 23:31 Respiratory Rate 18 05/21/23 23:31 Blood Pressure 123/93 H 05/21/23 23:31 Pulse Oximetry 97 05/21/23 23:31 Oxygen Delivery Method Room Air 05/21/23 21:30 MDM - Abdominal Pain MDM Narrative Medical decision making narrative: This 43-year-old female presents for evaluation of 2 hours of right lower quadrant abdominal pain with nausea and approximately 8 episodes of vomiting. She has not had any diarrhea.. She did not have any preceding anorexia or fevers or chills. She is minimally tender in the right lower quadrant. She does not have a history of kidney stones. She has had ovarian cysts according to her records. My concern was that she had a kidney stone or appendicitis. An IV was placed and she was medicated with IV fluids, Zofran and Toradol. She declined the Toradol stating that she does not do well with pain medication. She was taken to CT scan but had an anxiety attack and could not complete the CT scan without a dose of anxiolytics. I ordered Ativan which is currently unavailable and then ordered her IM Valium. After the Valium she was able to tolerate the CT scan. CT scan was in the body of this report does not show any acute appendicitis. The results of the scan was discussed with her. She has a normal white count and hemoglobin. She has normal electrolytes. Urine is negative for infection but does appear to be contaminated with menstrual contamination. I reassured her that her urine was not consistent with a urinary tract infection. She has not had any additional episodes of vomiting while in the emergency department and will be discharged home with a prescription for Zofran. I en couraged her to return to the emergency department for worsening symptoms, anorexia, fevers chills or any concerns. Medical Records Medical records narrative: [place] [address] CT Scan Report Signed Patient: JUNE PLASCENCIA MR#: [id number] : 1980 Acct:[id number] Age/Sex: 43 / F ADM Date: 05/21/23 Loc: ER Attending Dr: Ordering Physician: Brianda Panchal Date of Service: 05/21/23 Procedure(s): CT abdomen pelvis w con Accession Number(s): [id number] cc: BRANDYN BASS ~ [facility] [place] [id number] Patient Name: JUNE PLASCENCIA MRN: [id number] date: 1980 Sex: F Assigned Patient Location: ER Current Patient Location: ER Accession/Order Number: [id number] Exam Date: 05/21/2023 23:59 Report Date: 05/22/2023 01:15 At the request of: BRIANDA MARKER Procedure: CT abdomen pelvis w con EXAM: CT abdomen pelvis w con HISTORY: r/o appy . [Right lower quadrant pain beginning 1.5 hours ago with nausea and vomiting. COMPARISON: CT abdomen pelvis, 02/26/2023. TECHNIQUE: IV contrast enhanced CT imaging the abdomen and pelvis was performed using 100 mL of Omnipaque 300 intravenous contrast. Sagittal and coronal reconstructions are provided. Dose reduction techniques were achieved by using automated exposure control and/or adjustment of mA and/or kV according to patient size and/or use of iterative reconstruction technique. FINDINGS: CT ABDOMEN: The lung bases are clear. The imaged heart is unremarkable. The liver, gallbladder, spleen, adrenal glands, kidneys, aorta, IVC, stomach and small bowel appear unremarkable. There is a focal calcification in the pancreatic head on image 55. The pancreas is otherwise unremarkable. CT PELVIS: A normal appendix is well seen on images 80 through 93 of series 3. Hyperdensity in the proximal appendix may reflect mild retained enteric contrast from prior imaging exam or small appendicoliths. There are no CT findings of appendicitis. The pelvic small bowel loops, colon, urinary bladder and uterus are unremarkable. Bilateral ovarian follicles are noted measuring up to 2 cm on the right. No inflammatory fat stranding, free fluid, loculated fluid or free air is seen in the abdomen or pelvis. No acute osseous abnormality or suspicious bony lesion is seen. CT/CT abdomen pelvis w con IMPRESSION: 1. No acute findings in the abdomen or pelvis. 2. Normal appendix. No specific cause of right lower quadrant pain is identified Lab Data Labs: Lab Results 05/21/23 05/21/23 Range/Units 22:20 22:30 WBC 10.3 (4.0-11.0) 10^3/uL RBC 4.95 (4.20-5.40) 10^6/uL Hgb 14.1 (12.0-16.0) g/dL Hct 43.3 (36.0-48.0) % MCV 87.5 (81.0-99.0) fL MCH 28.5 (26.7-34.0) pg MCHC 32.6 (29.9-35.2) g/dL RDW 13.8 (11.0-15.0) % Plt Count 335 (150-450) 10^3/uL MPV 10.1 (9.5-13.5) fL Neut % (Auto) 63.5 (43.0-75.0) % Lymph % (Auto) 25.1 (20.5-60.0) % Johnston % (Auto) 6.0 (1.7-12.0) % Eos % (Auto) 4.3 (0.9-7.0) % Baso % (Auto) 0.9 (0.2-2.0) % Neut # (Auto) 6.6 H (1.4-6.5) 10^3/uL Lymph # (Auto) 2.6 (1.2-3.8) 10^3/uL Johnston # (Auto) 0.6 (0.3-0.8) 10^3/uL Eos # (Auto) 0.4 (0.0-0.7) 10^3/uL Baso # (Auto) 0.1 (0.0-0.1) 10^3/uL Abs Immat Gran (auto) 0.02 (0.00-0.03) 10^3/uL Imm/Tot Granulo (auto) 0.2 (0.0-0.5) % Sodium 137 (136-145) mmol/L Potassium 3.7 (3.5-5.1) mmol/L Chloride 102 (98-107) mmol/L Carbon Dioxide 26.1 (21.0-32.0) mmol/L Anion Gap 12.6 BUN 12.0 (7.0-18.0) mg/dL Creatinine 1.00 (0.55-1.02) mg/dL Est GFR ( Amer) >60 (>=60) Est GFR (Non-Af Amer) >60 (>=60) BUN/Creatinine Ratio 12.0 Glucose 181 H (74-106) mg/dL Calcium 9.6 (8.5-10.1) mg/dL Total Bilirubin 0.2 (0.2-1.0) mg/dL AST 20 (15-37) U/L ALT 20 (14-59) U/L Alkaline Phosphatase 79 (46-116) U/L Total Protein 7.8 (6.4-8.2) g/dL Albumin 4.0 (3.4-5.0) g/dL Globulin 3.8 g/dL Albumin/Globulin Ratio 1.1 Urine Color Lt. yellow (YELLOW) Urine Clarity Clear (CLEAR) Urine pH 7.5 (5.0-9.0) Ur Specific [place] 1.010 (1.005-1.025) Urine Protein Negative (NEG/TRACE) mg/dL Urine Glucose (UA) Negative (NEGATIVE) mg/dL Urine Ketones Negative (NEGATIVE) mg/dL Urine Occult Blood Trace-i (NEGATIVE) Urine Nitrite Negative (NEGATIVE) Urine Bilirubin Negative (NEGATIVE) Urine Urobilinogen 0.2 (0.2-1.0) EU/dL Ur Leukocyte Esterase Negative (NEGATIVE) Urine RBC 0-2 (0-2) #/HPF Urine WBC 0-2 A (NONE SEEN) #/HPF Ur Squamous Epith Cells Few A (NONE/RARE) #/LPF Urine Crystals Seen A (None Seen) #/HPF Amorphous Sediment Moderate Urine Bacteria Small A (NONE SEEN) #/HPF Urine Casts None seen (NONE SEEN) #/LPF Urine Mucus None seen (NONE SEEN) Urine HCG, Qual Negative (NEGATIVE) Discharge Plan Discharge Chief Complaint: Abdominal Pain Clinical Impression: Abdominal pain, Nausea & vomiting Patient Disposition: Home, Self-Care Time of Disposition Decision: 01:38 Condition: Good Prescriptions / Home Meds: No Action cholecalciferol (vitamin D3) 50 mcg (2,000 unit) capsule 50 mcg PO DAILY ferrous sulfate [FeroSul] 325 mg (65 mg iron) tablet 325 mg PO QMWF magnesium gluconate [Mag-G] 27 mg magnesium (500 mg) tablet 27 mg PO DAILY omeprazole magnesium [Prilosec OTC] 20 mg tablet,delayed release (DR/EC) 40 mg PO DAILY buspirone 5 mg tablet 5 mg PO DAILY alprazolam 0.25 mg tablet 0.25 mg PO DAILY amlodipine 2.5 mg tablet 2.5 mg PO DAILY (DME) True Metrix Glucose Test Strip Strip MISCELLANEOUS Instructions: Acute Nausea and Vomiting (ED), Abdominal Pain (ED) Stand Alone Forms: Portal Instructions Referrals: BRANDYN BASS [Primary Care Provider] - 1 week
[2023-05-21 22:52] LABS: Bilirubin Urine NEGATIVE (NEGATIVE); Blood Urine TRACE-I (NEGATIVE); Clarity Urine CLEAR (CLEAR); Color Urine LT. YELLOW (YELLOW); Glucose Urine UA NEGATIVE (NEGATIVE); Ketones Urine NEGATIVE (NEGATIVE); Leukocyte Esterase Urine NEGATIVE (NEGATIVE); Nitrite Urine NEGATIVE (NEGATIVE); Protein Urine NEGATIVE (NEG/TRACE); Urobilinogen Urine 0.2 EU/dL (0.2-1.0); pH Urine 7.5 (5.0-9.0)
[2023-05-21 22:53] LABS: Basophils Absolute Auto 0.1 10^3/uL (0.0-0.1); Basophils Percent Auto 0.9 % (0.2-2.0); Eosinophils Absolute Auto 0.4 10^3/uL (0.0-0.7); Eosinophils Percent Auto 4.3 % (0.9-7.0); Hematocrit 43.3 % (36.0-48.0); Hemoglobin 14.1 g/dL (12.0-16.0); Immature Granulocytes Abs Auto 0.02 10^3/uL (0.00-0.03); Immature Granulocytes Pct Auto 0.2 % (0.0-0.5); Lymphocytes Absolute Auto 2.6 10^3/uL (1.2-3.8); Lymphocytes Percent Auto 25.1 % (20.5-60.0); Mean Corpuscular HGB Conc 32.6 g/dL (29.9-35.2); Mean Corpuscular Hemoglobin 28.5 pg (26.7-34.0); Mean Corpuscular Volume 87.5 fL (81.0-99.0); Mean Platelet Volume 10.1 fL (9.5-13.5); Monocytes Absolute Auto 0.6 10^3/uL (0.3-0.8); Neutrophils Absolute Auto 6.6 10^3/uL (1.4-6.5); Neutrophils Percent Auto 63.5 % (43.0-75.0); Platelet Count 335 10^3/uL (150-450); Red Blood Count 4.95 10^6/uL (4.20-5.40); Red Cell Distribution Width 13.8 % (11.0-15.0); White Blood Count 10.3 10^3/uL (4.0-11.0)
[2023-05-21 22:55] LABS: HCG Qualitative Urine* NEGATIVE (NEGATIVE)
[2023-05-21 23:04] LABS: Amorphous Sediment Urine MODERATE; Bacteria Urine SMALL #/HPF (NONE SEEN); Crystals Seen? Seen #/HPF (None Seen); Mucus Urine NONE SEEN (NONE SEEN); RBC Urine 0-2 #/HPF (0-2); Squamous Epithelial Cell Urine FEW #/LPF (NONE/RARE); WBC Urine 0-2 #/HPF (NONE SEEN)
[2023-05-21 23:05] LABS: Cast Seen? NONE SEEN #/LPF (NONE SEEN)
[2023-05-21 23:09] LABS: Alanine Aminotransferase 20 U/L (14-59); Albumin Globulin Ratio 1.1; Alkaline Phosphatase 79 U/L (46-116); Anion Gap 12.6; Aspartate Amino Transferase 20 U/L (15-37); Bilirubin Total 0.2 mg/dL (0.2-1.0); Calcium 9.6 mg/dL (8.5-10.1); Carbon Dioxide 26.1 mmol/L (21.0-32.0); Chloride 102 mmol/L (98-107); Estimated GFR (African America >60 (>=60); Estimated GFR (Non-African Ame >60 (>=60); Globulin 3.8 g/dL; Glucose 181 mg/dL (74-106); Potassium 3.7 mmol/L (3.5-5.1); Sodium 137 mmol/L (136-145); Total Protein 7.8 g/dL (6.4-8.2)
[2023-05-21] MEDS: ONDANSETRON PF 4 MG/2 ML VIAL IV (23:29)
[2023-05-21] MEDS: 0.9 % SODIUM CHLORIDE 1,000 ML 1000 ML IV (23:29)
[2023-05-21 23:31] VITALS: BP 123/93; PULSE 93; RESP 18; O2SAT 97
[2023-05-21] MEDS: DIAZEPAM 10 MG/2 ML SYRINGE 5 MG IM (23:35)
[2023-05-22 01:44] VITALS: BP 140/98; PULSE 73; O2SAT 100
== END 2023-05-22 01:46 | disposition home or self-care (01) ==
PROVIDERS: Emergency Provider Emergency Medicine
DX: R10.31 Right lower quadrant pain (principal); R11.2 Nausea with vomiting, unspecified; Z87.891 Personal history of nicotine dependence; F41.9 Anxiety disorder, unspecified
CPT/HCPCS: 36415; 74177; 80053; 81001; 84703; 85025; 96361; 96372; 96374; 99284; Q9967